=== PATIENT | female | born 1930 | race Caucasian/White ===

== ENCOUNTER 2017-11-07 02:24 | Inpatient (IN) | payer OTHER, MEDICARE ==
[~2017-11-07] VITALS: Ht 154.9 cm; Wt 63.5 kg
[~2017-11-07 02:24] MED LIST: CENTRUM SILVER1 EAC3 PO; ULTRAM50 M1 PO
--- NOTE | 2017-11-07 02:28 | ED NECK/BACK PAIN COMPLAINT ---
See Addendum History of Present Illness General Chief Complaint: Low Back Pain/Injury Stated Complaint: BACK PAIN RADIATING DOWN RT SIDE. Source: patient, old records, EMS Exam Limitations: no limitations Vital Signs & Intake/Output Vital Signs & Intake/Output Vital Signs Date Time Temp Pulse Resp B/P B/P Pulse O2 O2 Flow FiO2 Mean Ox Delivery Rate 11/07 0623 97.6 56 16 147/68 95 Room Air 11/07 0426 97.6 56 18 153/63 96 Room Air 11/07 0228 98.4 60 18 175/76 6 Room Air Allergies Coded Allergies: Sulfa (Sulfonamide Antibiotics) (NAUSEA 01/14/17) Triage Nurses Notes Reviewed? yes HPI: Patient presents with sciatica going down her right leg. Patient states that she suffers from sciatica but it is usually well-controlled. Patient was recently on vacation and did a lot of walking. The pain has been increased since then. Tonight she got up to go to the bathroom and was unable to walk secondary to the pain. Patient denies any weakness or numbness. There is no incontinence of bowel or bladder. The pain is aching in nature. The pain is 8 out of 10. (Nelly CARTAGENA,Brent Brasher) Reconcile Medications Alendronate Sodium 70 MG TABLET 1 TAB PO Mo BONE (Reported) in the morning, at least 30 minutes before the first food, beverage, or medication of the day Multivitamin (Daily Value) 1 EACH TABLET 1 TAB PO DAILY VITAMIN SUPPORT ( Reported) (Heri Valles DO) Past History Travel History Traveled to [place] past 21 day No Medical History Any Pertinent Medical History? see below for history Neurological: NONE EENT: NONE Cardiovascular: NONE Respiratory: NONE Gastrointestinal: NONE Hepatic: NONE Renal: NONE Musculoskeletal: sciatica Psychiatric: NONE Endocrine: NONE Blood Disorders: NONE Cancer(s): NONE RESIDENTIAL ASSISTANT/Reproductive: NONE Other Medical Hx: lyme disease Surgical History Surgical History: non-contributory Psychosocial History What is your primary language Maltese Tobacco Use: Never used ETOH Use: denies use Illicit Drug Use: denies illicit drug use Family History Hx Contributory? No (Nelly CARTAGENA,Brent Brasher) Review of Systems Review of Systems Constitutional: Reports: no symptoms. Ears, Nose, Throat, Mouth: Reports: no symptoms. Respiratory: Reports: no symptoms. Cardiovascular: Reports: no symptoms. Gastrointestinal/Abdominal: Reports: no symptoms. Musculoskeletal: Reports: see HPI, back pain. Neurological/Psychological: Reports: no symptoms. (Nelly CARTAGENA,Brent Brasher) Physical Exam Physical Exam General Appearance: well developed/nourished, alert, awake, moderate distress Head: atraumatic, normal appearance Eyes: Bilateral: PERRL, EOMI. Ears, Nose, Throat, Mouth: hearing grossly normal, moist mucous membrane Neck: normal inspection, supple, full range of motion Respiratory: normal breath sounds, chest non-tender, no respiratory distress, lungs clear Cardiovascular: regular rate/rhythm, normal peripheral pulses Gastrointestinal: normal bowel sounds, soft, non-tender, no organomegaly Back: muscle spasm, no vertebral tenderness Extremities: non-tender, normal range of motion Straight Leg Raising: Right: Negative. Left: Negative. Sensory: Medial Le: L4R, L4L. Motor: Deficit L4 Right: No Deficit L4 Left: No Deficit L5 Right: No Deficit L5 Left: No Deficit S1 Right: No Deficit S1 Right: No DTR: Deficit L4 Left: No Deficit L4 Right: No Deficit S1 Left: No Deficit S1 Right: No Patellar: 3: L4 Right, L4 Left. Achilles: 3: S1 Right, S1 Left. Neurologic/Psych: no motor/sensory deficits, awake, alert, oriented x 3, normal mood/affect Core Measures CVA/TIA Diagnosis: No (Nelly CARTAGENA,Brent Brasher) Progress Differential Diagnosis: herniated disc, myofascial strain, sciatica Plan of Care: Orders Procedure Date/time Status Regular Diet 11/[address] LUMB SPINE WO IV CONTRAST 11/07 904 Active PT Evaluate & Treat 11/08 431 Active CASE MANAGEMENT CONSULT 11/08 431 Active Theraputic Activities 15 Min 11/07 UNK Complete PT EVAL LOW COMPLEX 20 MIN 11/07 UNK Complete Hand-Off Endorsed To: Heri Valles DO Endorsed Time: 699 Pending: consult Comments: Patient is beginning to feel better. Patient unable to get out of bed secondary to pain. Patient states that she was feeling better and was able to fall from side to side or when she sat up with an attempt to stand the pain intensified again. At this point we'll give steroids, Tylenol with Codeine and obtain a physical therapy consultation. (Nelly CARTAGENA,Brent Brasher) Departure Departure Disposition: STILL A PATIENT Condition: Stable Clinical Impression Primary Impression: Sciatica of right side Referrals: Mellissa Sanchez MD (PCP/Family) Departure Forms: Customer Survey General Discharge Information (Nelly CARTAGENA,Brent Brasher) Departure Comments 11/07/17 9:38 AM She is unable to walk. PT consultation has been obtained. Case management consultation is pending. (Heri Valles DO)
[2017-11-07] MEDS ORDERED: ALENDRONATE SOD70 M2 PO (09:29)
[2017-11-07] MEDS ORDERED: DAILY VALUE1 EACH PO (09:30)
--- NOTE | 2017-11-07 10:30 | CT SCAN REPORT ---
EXAMINATION: CT LUMBAR SPINE WITHOUT CONTRAST CLINICAL INFORMATION: Back pain. COMPARISON: None TECHNIQUE: Lumbar spine CT was performed without contrast. Multiplanar reformats were rendered and reviewed. DLP: 536 mGy-cm FINDINGS: There is mild grade 1 anterolisthesis of L4 on L5 and L5 on S1. There is mild dextroscoliotic curvature at L1-L2 with asymmetric left-sided disc height loss at L1-L2. There is multilevel intervertebral disc height loss with vacuum discs at every level excepting L2-L3. Multiple endplate Schmorl's nodes are also noted most prominently at T12 and L3. There is advanced multilevel facet arthropathy. No fracture is seen. There is atelectasis at the left lung base. Colonic diverticulosis is noted. SPINAL LEVELS: L1-L2: Posterior disc osteophyte complex without significant spinal canal stenosis. Bilateral facet arthropathy and ligamentum flavum infolding. Mild bilateral neural foraminal stenosis. L2-L3: Disc bulging, facet arthropathy, and ligamentum flavum infolding. No spinal canal stenosis. No neural foraminal stenosis. L3-L4: Posterior disc osteophyte complex in combination with ligamentum flavum infolding and facet arthropathy results in mild spinal canal stenosis with flattening of the ventral thecal sac. Moderate left and [id number] right neural foraminal stenosis with mass effect on the left more than right L3 nerve roots. L4-L5: Disc bulging in combination with ligamentum flavum infolding and facet arthropathy results in moderate spinal canal stenosis and subarticular zone stenosis. There is grade 1 anterolisthesis with posterior unroofing of the disc which contributes to severe right and moderate left neural foraminal stenosis with mass effect on the exiting right L4 nerve root. L5-S1: Disc bulging and bilateral facet arthropathy without spinal canal stenosis. Moderate right neural foraminal stenosis with mass effect on the exiting right L5 nerve root. IMPRESSION: - No lumbar spine fracture. Mild grade 1 anterolisthesis of L4 on L5 and L5 on S1. - Multilevel degenerative spondylotic changes as detailed above resulting in varying degrees of spinal canal, subarticular, and neural foraminal stenosis.
--- NOTE | 2017-11-07 12:07 | History & Physical ---
Nancy Wiley 11/07/17 1206: General Information and HPI MD Statement: I have seen and personally examined LE SOLITARIO and documented this H&P. The patient is a 87 year old F who presented with a patient stated chief complaint of back pain. Source of Information: patient History of Present Illness: Ms Solitario is an 87 year old woman w/ a PMHx of sciatica, osteoporosis (on alendronate) with no other significant past history came to the hospital with a chief concern of pain in her back that is radiating to bilateral lower extremities. Severity 01/10, radiating to the back of her lower extremities 2 days. As per the patient, she was on a vacation and walked more than usual her daily walking. Also, has been exercising more than her regular routine. No loss of bladder or bowel function. No neurological weakness or numbness. She has urinary incontinence at baseline, and has not chaged lately. Non smoker, non alcoholic. No recent injuries, trauma or falls. She was planned to be discharged today this am, but since she couldnt get out of the bed; thought prudent to bring her into general medcine for optimal pain control. No chest pain, palpitations, no dysuria. Allergies/Medications Allergies: Coded Allergies: Sulfa (Sulfonamide Antibiotics) (NAUSEA 01/14/17) Home Med list Alendronate Sodium 70 MG TABLET 1 TAB PO Mo BONE (Reported) in the morning, at least 30 minutes before the first food, beverage, or medication of the day Multivitamin (Daily Value) 1 EACH TABLET 1 TAB PO DAILY VITAMIN SUPPORT ( Reported) Past History Travel History Traveled to [place] past 21 day No Medical History Neurological: NONE EENT: NONE Cardiovascular: NONE Respiratory: NONE Gastrointestinal: NONE Hepatic: NONE Renal: NONE Musculoskeletal: sciatica Psychiatric: NONE Endocrine: NONE Blood Disorders: NONE Cancer(s): NONE MANAGER FLOOR/Reproductive: NONE Other Medical Hx: lyme disease Isolation History: Standard Surgical History Surgical History: non-contributory Past Family/Social History Family History Relations & Conditions if any Relation not specified for: *No pertinent family history Psychosocial History Who Do You Live With? spouse Services at Home: None Primary Language: Azeri Smoking Status: Never Smoked ETOH Use: denies use Illicit Drug Use: denies illicit drug use Living Will? yes Functional Ability ADLs Independent: dressing, eating, toileting, bathing. Ambulation: independent IADLs Independent: shopping, housework, finances, food prep, telephone, transportation , medication admin. Employment History Employment Retired Review of Systems Review of Systems Constitutional: Reports: see HPI. Denies: chills, fever. EENTM: Denies: blurred vision, visual changes. Cardiovascular: Denies: chest pain, orthopena, palpitations, peripheral edema, syncope. Respiratory: Denies: cough, short of breath. GI: Denies: abdominal pain, diarrhea. Genitourinary: Denies: frequency. Musculoskeletal: Denies: back pain. Skin: Denies: change in skin color. Neurological/Psychological: Denies: anxiety, numbness, paresthesia, pre-existing deficit, petit mal seizures , tingling. Hematologic/Endocrine: Denies: bruising. Exam & Diagnostic Data Last 24 Hrs of Vital Signs/I&O Vital Signs Date Time Temp Pulse Resp B/P B/P Pulse O2 O2 Flow FiO2 Mean Ox Delivery Rate 11/07 1251 98.5 11/07 1229 60 18 148/68 98 Room Air Room Air 11/07 1207 95 Room Air 11/07 1131 56 18 164/72 95 Room Air / 0623 97.6 56 16 147/68 95 Room Air / 0426 97.6 56 18 153/63 96 Room Air 11/07 0228 98.4 60 18 175/76 6 Room Air Intake & Output 11/07 1600 07 0800 08 0000 Intake Total 0 Output Total Balance 0 Intake, Oral 0 Patient 140 lb 140 lb Weight Weight Bed scale Reported by Patient Measurement Method Physical Exam General Appearance Alert, Oriented X3, Cooperative, No Acute Distress Skin No Rashes, No Breakdown, No Significant Lesion Skin Temp/Moisture Exam: Warm/Dry Sepsis Skin Exam (color): Normal for Ethnicity HEENT Atraumatic, PERRLA, EOMI, Mucous Membr. moist/pink Neck Supple, No JVD, No thryomegaly, +2 Carotid Pulse wo Bruit Lymphatic Axillary nl, Cervical nl Cardiovascular Regular Rate, Normal S1, Normal S2, No Murmurs, Gallops, Rubs Lungs Normal Air Movement Abdomen Normal Bowel Sounds, Soft, No Tenderness, No Hepatospenomegaly, No Masses Neurological Normal Speech, Strength at 5/5 X4 Ext, Normal Tone, Sensation Intact, Cranial Nerves 3-12 NL, Reflexes 2+, Rectal tone present SLR negative No tenderness in the back Extremities No Clubbing, No Cyanosis, No Edema, Normal Pulses, No Tenderness/ Swelling Vascular Normal Pulses, Pulses Symmetrical Sepsis Peripheral Pulse Location: Dorsalis Pedis Sepsis Peripheral Pulse Exam: Normal Body Front and Back (Adult) 1) pain Last 24 Hrs of Labs/Jonatan: Laboratory Tests 11/07/17 1405: Sodium Pending, Potassium Pending, Chloride Pending, Carbon Dioxide Pending, Anion Gap Pending, BUN Pending, Creatinine Pending, BUN/Creatinine Ratio Pending 11/07/17 1405: Calcium Pending, Total Bilirubin Pending, Direct Bilirubin Pending, AST Pending, ALT Pending, Alkaline Phosphatase Pending, Total Protein Pending, Albumin Pending, 25-OH Vitamin D Total Pending, CBC w Diff Pending, WBC Pending, RBC Pending, Hgb Pending, Hct Pending, MCV Pending, MCH Pending, MCHC Pending, RDW Pending, Plt Count Pending, MPV Pending Assessment/Plan Assessment: Ms Solitario is an 87 year old woman w/ a PMHx of sciatica, osteoporosis (on alendronate) with no other significant past history came to the hospital with a chief concern of worsening pain in her back radiating to bilateral lower extremities x 2 days likely secondary to radioculopathy. At the time of admission-temperature 98.4, pulse rate 60, respiration 18, blood pressure 175/76, pulse ox 96% on room air. Labs: WBC 5.3, Hb 14.4, platelets 337 Na 139, K 4.0, BUN 17, Cr 0.7 She was given prednisone, Tylenol 3, ketorolac 30 mg IM, cyclobenzaprine. Lumbar CT revealed mild grade 1 anterolisthesis of L4 on L5 and L5 on S1. There is mild dextroscoliotic curvature at L1-L2 with asymmetric left-sided disc heightloss at L1-L2. There is multilevel intervertebral disc height loss withvacuum discs at every level excepting L2-L3. Multiple endplate Schmorl' snodes are also noted most prominently at T12 and L3. There is advanced multilevel facet arthropathy. No fracture is seen. There is atelectasis at the left lung base. Colonic diverticulosis is noted. SPINAL LEVELS: L1-L2: Posterior disc osteophyte complex without significant spinal canalstenosis. Bilateral facet arthropathy and ligamentum flavum infolding. Mildbilateral neural foraminal stenosis. L2-L3: Disc bulging, facet arthropathy, and ligamentum flavum infolding. Nospinal canal stenosis. No neural foraminal stenosis.L3-L4: Posterior disc osteophyte complex in combination with ligamentumflavum infolding and facet arthropathy results in mild spinal canal stenosiswith flattening of the ventral thecal sac. Moderate left and [id number] neural foraminal stenosis with mass effect on the left more than rightL3 nerve roots. L4-L5: Disc bulging in combination with ligamentum flavum infolding and facetarthropathy results in moderate spinal canal stenosis and subarticular zonestenosis. There is grade 1 anterolisthesis with posterior unroofing of thedisc which contributes to severe right and moderate left neural foraminal stenosis with mass effect on the exiting right L4 nerve root. L5-S1: Disc bulging and bilateral facet arthropathy without spinal canalstenosis. Moderate right neural foraminal stenosis with mass effect on theexiting right L5 nerve root. Problem list: #1 lumbar radical radiculopathy #2 h/o chronic back pain #3 h/o osteoporosis Plan: #1 pain management with tylenlol 500mg q8h scheduled, Flexeril 5mg tid, lidocaine patch, oxycodone 5mg q8h prn. Would also add gabapentin 200mg qpm. #2 Physical therapy evaluation #3 DVT PPx w/ subcutaneous heparin sc #4 Fall precautions. #5 If she develops any worsening symptoms, or has any s/s of cord compression would get an MRI lumbar spine. At this time, she doesnt seem to have any symptoms. #6 Check 25OH vit D. As Ranked By This Provider Problem List: 1. Sciatica of right side Core Measures/Misc (12/18) Acute Coronary Syndrome ACS Diagnosis: No Congestive Heart Failure Congestive Heart Failure Diagnosis No Cerebrovascular Accident CVA/TIA Diagnosis: No VTE (View Protocol) VTE Risk Factors Acute Medical Illness No Mechanical VTE Prophylaxis d/t N/A MechProphylax Ordered No VTE Pharm Prophylaxis d/t NA PharmProphylax ordered Sepsis (View protocol) Sepsis Present: No If YES complete Sepsis Event Note If YES complete Sepsis Event Note Dwain CARTAGENA,[place] 11/07/17 1338: Core Measures/Misc (12/18) Sepsis (View protocol) If YES complete Sepsis Event Note If YES complete Sepsis Event Note Attending MD Review Statement Attending Statement Attending MD Statement: examined this patient, discuss w/resident/PA/GLASS LATHE OPERATOR, agreed w/resident/PA/GLASS LATHE OPERATOR, reviewed EMR data (avail), discussed with nursing, discussed with case mgmt, reviewed images Attending Assessment/Plan: 87-year-old female past medical history of osteoporosis, here with severe intractable back pain. Had a recent trip to [facility] where she walked a lot and this morning could barely get out of bed. No neurological deficit, no bowel or bladder incontinence and no saddle anesthesia. CT scan shows multilevel canal stenosis with mass-effect and on exiting nerve roots. Will bring her into [facility], treat her pain aggressively with Neurontin, lidocaine patch, Flexeril. PT and out of bed and will follow closely.
[2017-11-07 12:29] VITALS: BP 148/68
--- NOTE | 2017-11-07 13:38 | Admission Certification ---
Admission Certification Certification Statement - As attending physician, I certify that at the time of - admission, based on clinical presentation, severity of - symptoms, need for further diagnostic testing and - therapeutic interventions, and risk of adverse outcomes - without in-hospital treatment, in my clinical assessment, - this patient requires an acute hospital stay for a minimum - of two nights or longer. I have also considered psychsocial - factors such as support system, advanced age, financial - issues, cognitive issues, and failed out-patient treatments, - past re-admission history, safety of patient, and lack of - compliance as applicable. Specific rationale supporting this admission is: Severe intractable pain with spinal canal stenosis and mass-effect on nerve roots.
[2017-11-07 14:30] LABS: ABSOLUTE BASOPHIL COUNT 0 /CUMM (0.0-0.2); ABSOLUTE EOSINOPHIL COUNT 0 /CUMM (0.0-0.7); ABSOLUTE GRANULOCYTE CT 4.7 /CUMM (1.4-6.5); ABSOLUTE LYMPH COUNT 0.6 /CUMM (1.2-3.4); ABSOLUTE MONOCYTE COUNT 0 /CUMM (0.10-0.60); BASOPHIL % 0 % (0.0-2.0); EOSINOPHIL % 0 % (0-5); HEMATOCRIT 42.3 % (37-47); MEAN CORPUSCULAR VOLUME 88.2 FL (81.0-99.0); MEAN PLATELET VOLUME 7.8 FL (7.4-10.4); RBC DISTRIBUTION WIDTH 13.4 % (11.5-14.5); RED BLOOD CELL CT 4.79 /CUMM (4.20-5.40); WHITE BLOOD CELL COUNT 5.3 /CUMM (4.8-10.8)
[2017-11-07 14:52] LABS: GRANULOCYTE % 88.4 % (42.2-75.2)
[2017-11-07 14:53] LABS: PLATELET COUNT 337 /CUMM (130-400)
[2017-11-07 15:10] VITALS: BP 146/72
[2017-11-07 21:39] VITALS: BP 120/62
--- NOTE | 2017-11-08 06:31 | PN- Housestaff ---
Shimon Martin 11/08/17 0631: Subjective Follow-up For: Low back pain Lumbar radiculopathy Subjective: He visited her this morning, she was lying back in bed alert and oriented 3. She was in no acute distress. She has stated that her back pain is much better than yesterday. She had no problems with bowel movement or urination. She denies any lightheadedness, dizziness, chest pain, shortness of breath, vertigo, chills, fever, dysuria, constipation, diarrhea, or abdominal pain. Review of Systems Constitutional: Reports: see HPI. Objective Last 24 Hrs of Vital Signs/I&O Vital Signs Date Time Temp Pulse Resp B/P B/P Pulse O2 O2 Flow FiO2 Mean Ox Delivery Rate 11/08 0648 98.9 58 18 110/52 96 Room Air 11/07 2139 98.3 70 16 120/62 95 Room Air 11/07 1510 98.5 60 18 146/72 98 Room Air Room Air 11/07 1251 98.5 11/07 1229 60 18 148/68 98 Room Air Room Air 11/07 1207 95 Room Air 11/07 1131 56 18 164/72 95 Room Air Intake & Output 11/08 1600 11/08 0800 11/08 0000 Intake Total 480 850 Output Total Balance 480 850 Intake, IV 0 10 Intake, Oral 480 840 Number 1 0 1 Bowel Movements Physical Exam General Appearance: Alert, Oriented X3, Cooperative, No Acute Distress Skin: No Rashes Skin Temp/Moisture Exam: Warm/Dry HEENT: Atraumatic Assessment/Plan Assessment: Ms Solitario is an 87 year old woman w/ a PMHx of sciatica, osteoporosis (on alendronate) with no other significant past history came to the hospital with a chief concern of worsening pain in her back radiating to bilateral lower extremities for two days likely secondary to radioculopathy. She will try to ambulate and walk on the floor if she can tolerate it she might be able to be discharged tomorrow. Lumbar radical radiculopathy: The pain is in control now. Plan: We will obtain MRI, pain management was done with gabapentin 200 mg every afternoon, acetaminophen 500 mg p.o. every 8 hours, cyclobenzaprine 5 mg 3 times daily, oxycodone 5 mg q. 8, lidocaine patch In ER she received prednisone 60 mg p.o., ketorolac 30 mg injection. Osteoporosis: Plan: She has been taking alendronate. Low Vitamin D: Plan: Cholecalciferol 2000 IU daily Problem List: 1. Lumbar back pain with radiculopathy affecting lower extremity 2. Low back pain Pain Ratin Pain Location: Low back Pain Goal: Pain 4 or less Pain Plan: Lidocaine patch Oxycodone Acetaminophen Tomorrow's Labs & Rationales: JESSICA Prakash MD,[place] 11/08/17 0955: Attending MD Review Statement Attending Statement Attending MD Statement: examined this patient, discuss w/resident/PA/RIB KNITTER, agreed w/resident/PA/RIB KNITTER, reviewed EMR data (avail), discussed with nursing, discussed with case mgmt, reviewed images Attending Assessment/Plan: Overall patient is doing better. She was able to take a few stairs today with less pain. 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 We started on low-dose Neurontin at bedtime. The plan is STR when stable.
[2017-11-08 06:48] VITALS: BP 110/52
--- NOTE | 2017-11-08 11:23 | Discharge Summary ---
Visit Information Visit Dates Admission Date: 11/07/17 Hospital Course Course Attending Physician: Dwain CARTAGENA,Odette Escudero Primary Care Physician: Laura CARTAGENA,[place] Hospital Course: Assessment: Ms Solitario is an 87 year old pleasant lady with past medical history of sciatica, osteoporosis (on alendronate) with no other significant medical problems who came to the ER with a chief concern of worsening pain in her back radiating to bilateral lower extremities for two days likely secondary to radioculopathy. On the second day of admission she was able to take a few stairs with less pain. Imaging has shown severe spinal canal stenosis with mass-effect on exiting nerve roots. In the afternoon her pain had worsened. She believes she needs to go to short-term rehab. Lumbar radical radiculopathy: The pain is in control now. Plan: We will obtain MRI, pain management was done with gabapentin 200 mg ( increased to 300) every afternoon, acetaminophen 500 mg p.o. every 8 hours, cyclobenzaprine 5 mg 3 times daily, oxycodone 5 mg q. 8, lidocaine patch In ER she received prednisone 60 mg p.o., ketorolac 30 mg injection. Osteoporosis: Plan: She has been taking alendronate. Allergies: Coded Allergies: Sulfa (Sulfonamide Antibiotics) (NAUSEA 01/14/17) Significant Procedures: Lumbar CT: FINDINGS: There is mild grade 1 anterolisthesis of L4 on L5 and L5 on S1. There is mild dextroscoliotic curvature at L1-L2 with asymmetric left-sided disc height loss at L1-L2. There is multilevel intervertebral disc height loss with vacuum discs at every level excepting L2-L3. Multiple endplate Schmorl's nodes are also noted most prominently at T12 and L3. There is advanced multilevel facet arthropathy. No fracture is seen. There is atelectasis at the left lung base. Colonic diverticulosis is noted. SPINAL LEVELS: L1-L2: Posterior disc osteophyte complex without significant spinal canal stenosis. Bilateral facet arthropathy and ligamentum flavum infolding. Mild bilateral neural foraminal stenosis. L2-L3: Disc bulging, facet arthropathy, and ligamentum flavum infolding. No spinal canal stenosis. No neural foraminal stenosis. L3-L4: Posterior disc osteophyte complex in combination with ligamentum flavum infolding and facet arthropathy results in mild spinal canal stenosis with flattening of the ventral thecal sac. Moderate left and [id number] right neural foraminal stenosis with mass effect on the left more than right L3 nerve roots. L4-L5: Disc bulging in combination with ligamentum flavum infolding and facet arthropathy results in moderate spinal canal stenosis and subarticular zone stenosis. There is grade 1 anterolisthesis with posterior unroofing of the disc which contributes to severe right and moderate left neural foraminal stenosis with mass effect on the exiting right L4 nerve root. L5-S1: Disc bulging and bilateral facet arthropathy without spinal canal stenosis. Moderate right neural foraminal stenosis with mass effect on the exiting right L5 nerve root. IMPRESSION: - No lumbar spine fracture. Mild grade 1 anterolisthesis of L4 on L5 and L5 on S1. - Multilevel degenerative spondylotic changes as detailed above resulting in varying degrees of spinal canal, subarticular, and neural foraminal stenosis. Disposition Summary Disposition Principal Diagnosis: Lumbar radical radiculopathy Additional Diagnosis: Osteporosis Low Vitamin D level Discharge Instructions General Discharge Information Code Status: Full Code Medications at Discharge Discharge Medications: Continue taking these medications: Alendronate Sodium (Alendronate Sodium) 70 MG TABLET 1 Tablet ORAL Mo Qty = 12 Instructions: in the morning, at least 30 minutes before the first food, beverage, or medication of the day Comments: NOT GIVEN IN HOSPITAL Multivitamin (Daily Value) 1 EACH TABLET 1 Tablet ORAL DAILY Comments: NOT GIVEN IN HOSPITAL Start taking the following new medications: Oxycodone HCl (Oxycodone HCl) 5 MG TABLET 5 Milligram ORAL EVERY SIX HOURS NEEDED as needed for BACK PAIN Qty = 10 No Refills Comments: Last Taken: 11/10/17 Time: 11:00 AM Lidocaine (Lidoderm) 5 % ADH..PATCH 1 Patch ON SKIN Q24H Qty = 10 No Refills Instructions: Please keep on for 12 hours and off for 12 hours Comments: Last Taken: 11/09/17 Time: 1:00 PM Cyclobenzaprine HCl (Cyclobenzaprine HCl) 5 MG TABLET 5 Milligram ORAL THREE TIMES DAILY Qty = 30 No Refills Comments: Last Taken: 11/10/17 Time: 8:00 AM Gabapentin (Gabapentin) 300 MG CAPSULE 300 Milligram ORAL Every night Qty = 10 No Refills Comments: Last Taken: 11/09/17 Time: 8:00 PM Polyethylene Glycol 3350 (Miralax) 17 GRAM/DOSE POWDER 17 Gram ORAL DAILY Qty = 10 No Refills Comments: Last Taken: 11/10/17 Time: 8:00 AM Cholecalciferol (Vitamin D3) 1,000 UNIT TABLET 2,000 International Unit ORAL DAILY Qty = 30 No Refills Comments: Last Taken: 11/10/17 Time: 8:00 AM Sennosides/Docusate Sodium (Senna Plus Tablet) 8.6 MG-50 MG TABLET 1 Tablet ORAL AT BEDTIME Qty = 10 No Refills Comments: Last Taken: 11/09/17 Time: 8:00 PM
[2017-11-08] MEDS ORDERED: LIDODERM1 EACH EXT (14:02)
[2017-11-08 14:08] VITALS: BP 100/60
--- NOTE | 2017-11-08 14:12 | Patient Discharge Instructions ---
Discharge Instructions General Discharge Information You were seen/treated for: Lumbar radiculopathy with radiation to both lower extremities Watch for these problems: Worsening of back pain weakness, numbness, or tingling in your legs Special Instructions: Please visit your PCP one week after your discharge. Please call your PCP if you notice worsening of your low back pain, or if you notice weakness, tingling, or numbness in your legs or feet Diet Continue normal diet: Yes Recommended Diet: Regular Activity Full Activity/No Limits: No Activity Self Limited: Yes Acute Coronary Syndrome Inclusion Criteria At DC or during hospital stay patient has or had the following: ACS DIAGNOSIS No Discharge Core Measures Meds if any: Prescribed or Continued at Discharge Meds if any: NOT Prescribed or Continued at Discharge Congestive Heart Failure Inclusion Criteria At DC or during hospital stay patient has or had the following: CHF DIAGNOSIS No Discharge Core Measures Meds if any: Prescribed or Continued at Discharge Meds if any: NOT Prescribed or Continued at Discharge Cerebrovascular accident Inclusion Criteria At DC or during hospital stay patient has or had the following: CVA/TIA Diagnosis No Discharge Core Measures Meds if any: Prescribed or Continued at Discharge Meds if any: NOT Prescribed or Continued at Discharge Venous thromboembolism Inclusion Criteria VTE Diagnosis No VTE Type NONE VTE Confirmed by (Test) NONE Discharge Core Measures - Per Current guidelines, there needs to be overlap - treatment for the first 5 days of Warfarin therapy. - If discharged on Warfarin prior to 5 days of - overlap therapy, the patient will need to be - assessed for post discharge needs including - *Post discharge parental anticoagulation - *Warfarin and/or parental anticoagulation education - *Follow up date to check INR post discharge At least 5 days overlap therapy as Inpatient No Meds if any: Prescribed or Continued at Discharge Note: Overlap Therapy is Warfarin and Anticoagulant Meds if any: NOT Prescribed or Continued at Discharge
[2017-11-08 21:56] VITALS: BP 110/70
[2017-11-09 06:30] VITALS: BP 122/62
--- NOTE | 2017-11-09 06:38 | PN- Housestaff ---
Shimon Martin 11/09/17 0638: Subjective Follow-up For: Low back pain Lumbar radiculopathy Subjective: I visited the patient this morning. She was lying back in her bed. Alert and orinted x 3, in no acute distress. She had some difficulty with her back pain yesterday afternoon and she was not available to ambulate. Now her pain has improved, she likes to be sent to rehab till she can regain her stenght and them home. She denies any lightheadedness, dizziness, chest pain, shortness of breath, vertigo, chills, fever, dysuria, constipation, diarrhea, or abdominal pain. Review of Systems Constitutional: Reports: see HPI. Objective Last 24 Hrs of Vital Signs/I&O Vital Signs Date Time Temp Pulse Resp B/P B/P Pulse O2 O2 Flow FiO2 Mean Ox Delivery Rate 11/09 1400 97.8 77 18 112/52 95 Room Air 11/09 1257 Room Air Room Air 11/09 1233 Room Air Room Air 11/09 0630 98.3 61 18 122/62 96 11/08 2156 98.1 68 18 110/70 93 Room Air Intake & Output 11/09 1600 11/09 0800 11/09 0000 Intake Total 600 250 480 Output Total 500 600 Balance 100 250 -120 Intake, IV 10 Intake, Oral 600 240 480 Number 2 0 Bowel Movements Output, Urine 500 600 Physical Exam General Appearance: Alert, Oriented X3, Cooperative, No Acute Distress Skin: No Rashes Skin Temp/Moisture Exam: Warm/Dry Sepsis Skin Exam (color): Normal for Ethnicity HEENT: Atraumatic Neck: Supple, No JVD Cardiovascular: Regular Rate, Normal S1, Normal S2 Lungs: Clear to Auscultation, Normal Air Movement Abdomen: Normal Bowel Sounds, Soft, No Tenderness Neurological: Normal Speech Extremities: No Clubbing, No Cyanosis, No Edema, Normal Pulses, No Tenderness/ Swelling Vascular: Normal Pulses, Pulses Symmetrical Assessment/Plan Assessment: Ms Solitario is an 87 year old woman w/ a PMHx of sciatica, osteoporosis (on alendronate) with no other significant past history came to the hospital with a chief concern of worsening pain in her back radiating to bilateral lower extremities for two days likely secondary to radioculopathy. She is anticipated to be discharged to STR tomorrow. Lumbar radical radiculopathy: The pain is in control now. Plan: We will obtain MRI, pain management was done with gabapentin 300 mg every afternoon, acetaminophen 500 mg p.o. every 8 hours, cyclobenzaprine 5 mg 3 times daily, oxycodone 5 mg q. 8, lidocaine patch In ER she received prednisone 60 mg p.o., ketorolac 30 mg injection. Osteoporosis: Plan: She has been taking alendronate. Low Vitamin D: Plan: Cholecalciferol 2000 IU daily Problem List: 1. Lumbar back pain with radiculopathy affecting lower extremity 2. Low back pain Pain Ratin Pain Location: Low back Pain Goal: Pain 4 or less Pain Plan: Lidocaine patch Oxycodone Acetaminophen Tomorrow's Labs & Rationales: Odette Marc MD 11/09/17 1040: Attending MD Review Statement Attending Statement Attending MD Statement: examined this patient, discuss w/resident/PA/MEDICAL LAB TECHNOLOGIST, agreed w/resident/PA/MEDICAL LAB TECHNOLOGIST, reviewed EMR data (avail), discussed with nursing, discussed with case mgmt, reviewed images Attending Assessment/Plan: Patient is extremely upset today. She said when PT saw her and worked with her in the morning yesterday she was under the influence of medication and later in the day she had a very hard time. She said she could not even move in the night and she is very worried about walking today. I reassured her that physical therapy would see her again, she has severe canal stenosis with mass-effect on exiting nerve roots and we are treating her with pain control. I anticipate that she will need STR.
[2017-11-09 14:00] VITALS: BP 112/52
[2017-11-09] MEDS ORDERED: MIRALAX119 GM PO (14:22)
[2017-11-09] MEDS ORDERED: VITAMIN D31000 UNI2 PO (14:22)
[2017-11-09] MEDS ORDERED: OXYCODONE HCL5 M1 PO (14:22)
[2017-11-09] MEDS ORDERED: GABAPENTIN300 M2 PO (14:22)
[2017-11-09] MEDS ORDERED: CYCLOBENZAPRINE5 M2 PO (14:22)
[2017-11-09] MEDS ORDERED: SENNA PLUS TAB1 EACH PO (14:23)
[2017-11-09 22:22] VITALS: BP 112/58
--- NOTE | 2017-11-10 06:36 | PN- Housestaff ---
Shimon Martin 11/10/17 0635: Subjective Follow-up For: Low back pain Lumbar radiculopathy Subjective: I visited Yeni this morning, she was lying making her bed experiencing low back pain which did not help her move. Her nurse was also present in the room. After a couple of minutes she was able to move her legs. We helpED to reposition her which helped to decrease the pain. She has not used the bathroom overnight, because she had low back pain and was not able to get out of bed. She managed to do better later during the day and she is ready to go to [facility]. She did not have any complaints of lightheadedness, dizziness, chest pain, shortness of breath, vertigo, chills, fever, dysuria, constipation, diarrhea, or abdominal pain. Review of Systems Constitutional: Reports: see HPI. Objective Last 24 Hrs of Vital Signs/I&O Vital Signs Date Time Temp Pulse Resp B/P B/P Pulse O2 O2 Flow FiO2 Mean Ox Delivery Rate 11/10 0654 98.0 58 18 138/50 94 Room Air 11/09 2222 98.1 72 17 112/58 96 Room Air 11/09 1400 97.8 77 18 112/52 95 Room Air 11/09 1257 Room Air Room Air 11/09 1233 Room Air Room Air Intake & Output 11/10 1600 11/10 0800 11/10 0000 Intake Total 240 240 Output Total 300 Balance 240 -60 Intake, Oral 240 240 Output, Urine 300 Physical Exam General Appearance: Alert, Oriented X3, Cooperative, Mild Distress, Low back pain Skin: No Rashes Skin Temp/Moisture Exam: Warm/Dry Sepsis Skin Exam (color): Normal for Ethnicity HEENT: Atraumatic Neck: Supple, No JVD, One skin tag Cardiovascular: Regular Rate, Normal S1, Normal S2 Lungs: Clear to Auscultation, Normal Air Movement Abdomen: Normal Bowel Sounds, Soft, No Tenderness Neurological: Normal Speech, Strength at 5/5 X4 Ext, Normal Tone, Sensation Intact, SLE -ve Extremities: No Clubbing, No Cyanosis, No Edema, Normal Pulses, No Tenderness/ Swelling Vascular: Normal Pulses, Pulses Symmetrical Assessment/Plan Assessment: Ms Solitario is an 87 year old woman w/ a PMHx of sciatica, osteoporosis (on alendronate) with no other significant past history came to the hospital with a chief concern of worsening pain in her back radiating to bilateral lower extremities for two days likely secondary to radioculopathy. She was in low back pain today which was preventing her from getting out of the bed to use the bathroom. She managed to do better later in the day and she is ready to go to STR. Lumbar radical radiculopathy: This morning she had severe pain 7/10 which was controlled later during the day. Plan: We will obtain MRI, pain management was done with gabapentin 300 mg every afternoon, acetaminophen 500 mg p.o. every 8 hours, cyclobenzaprine 5 mg 3 times daily, oxycodone 5 mg increased to Q6h, lidocaine patch. In ER she received prednisone 60 mg p.o., ketorolac 30 mg injection. Osteoporosis: Plan: She has been taking alendronate. Low Vitamin D: Plan: Cholecalciferol 2000 IU daily Problem List: 1. Lumbar back pain with radiculopathy affecting lower extremity 2. 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 Pain is patient is started on Neurontin, Flexeril and on oxycodone as needed and the plan is STR today with close outpatient follow-up.
[2017-11-10 06:54] VITALS: BP 138/50
[2017-11-10] MEDS ORDERED: OXYCODONE HCL5 M1 PO (10:15)
--- NOTE | 2017-11-10 10:30 | Discharge Summary ---
Visit Information Visit Dates Admission Date: 11/07/17 Discharge Date: 11/10/17 Hospital Course Course Attending Physician: Dwain CARTAGENA,Odette Escudero Primary Care Physician: Laura CARTAGENA,[facility] Course: Patient is an 87 y/o female with PMH of sciatica, osteoporosis (on alendronate) with no other significant past history presenting with chief complaint of back pain radiating to bilateral lower extremities. Patient on admission: Vitals: T: 98.4, HR 60, RR 18, BP 175/76, pulse ox 96% on room air. Labs: WBC 5.3, Hb 14.4, platelets 337, Na 139, K 4.0, BUN 17, Cr 0.7 Imaging: Lumbar CT revealed mild grade 1 anterolisthesis of L4 on L5 and L5 on S1. L2-L3: Disc bulging, facet arthropathy, and ligamentum flavum infolding. Nospinal canal stenosis. No neural foraminal stenosis. L4-L5: Disc bulging in combination with ligamentum flavum infolding and facetarthropathy results in moderate spinal canal stenosis and subarticular zonestenosis. There is grade 1 anterolisthesis with posterior unroofing of thedisc which contributes to severe right and moderate left neural foraminal stenosis with mass effect on the exiting right L4 nerve root. L5-S1: Disc bulging and bilateral facet arthropathy without spinal canalstenosis. Moderate right neural foraminal stenosis with mass effect on theexiting right L5 nerve root. In ED patient received: Prednisone, Tylenol 3, ketorolac 30 mg IM, cyclobenzaprine Patient was admitted to the general medicine floor for management of the followin. Lumbar Radical Radiculopathy Patient presented with severe back back pain with imaging revealing lumbar stenosis with disc bulging at multiple lumbar levels and degenerative spondylotic changes. Patient had no alarming symptoms concerning for cord compression. Patient was managed conservatively with pain control and physical therapy. Patient continued to require assistance while walking and with severe pain during the day was unsafe for discharge home. Patient will benefit from short term rehab. Patient will be sent on cyclobenzaprine, gabapentin, tylenol, lidocaine and oxycodone for pain control. If patient's pain at the rehab center is worse, especially at night, the dose of gabapentin and oxycodone can be increased. 2. H/O Chronic Back Pain and Osteoporosis Continue alendronate Allergies: Coded Allergies: Sulfa (Sulfonamide Antibiotics) (NAUSEA 01/14/17) Pertinent Lab Results: SERVICE DATE: 11/07/17 EXAM TYPE: CAT - CT LUMB SPINE WO IV CONTRAST EXAMINATION: CT LUMBAR SPINE WITHOUT CONTRAST CLINICAL INFORMATION: Back pain. COMPARISON: None TECHNIQUE: Lumbar spine CT was performed without contrast. Multiplanar reformats were rendered and reviewed. DLP: 536 mGy-cm FINDINGS: There is mild grade 1 anterolisthesis of L4 on L5 and L5 on S1. There is mild dextroscoliotic curvature at L1-L2 with asymmetric left-sided disc height loss at L1-L2. There is multilevel intervertebral disc height loss with vacuum discs at every level excepting L2-L3. Multiple endplate Schmorl's nodes are also noted most prominently at T12 and L3. There is advanced multilevel facet arthropathy. No fracture is seen. There is atelectasis at the left lung base. Colonic diverticulosis is noted. SPINAL LEVELS: L1-L2: Posterior disc osteophyte complex without significant spinal canal stenosis. Bilateral facet arthropathy and ligamentum flavum infolding. Mild bilateral neural foraminal stenosis. L2-L3: Disc bulging, facet arthropathy, and ligamentum flavum infolding. No spinal canal stenosis. No neural foraminal stenosis. L3-L4: Posterior disc osteophyte complex in combination with ligamentum flavum infolding and facet arthropathy results in mild spinal canal stenosis with flattening of the ventral thecal sac. Moderate left and [id number] right neural foraminal stenosis with mass effect on the left more than right L3 nerve roots. L4-L5: Disc bulging in combination with ligamentum flavum infolding and facet arthropathy results in moderate spinal canal stenosis and subarticular zone stenosis. There is grade 1 anterolisthesis with posterior unroofing of the disc which contributes to severe right and moderate left neural foraminal stenosis with mass effect on the exiting right L4 nerve root. L5-S1: Disc bulging and bilateral facet arthropathy without spinal canal stenosis. Moderate right neural foraminal stenosis with mass effect on the exiting right L5 nerve root. IMPRESSION: - No lumbar spine fracture. Mild grade 1 anterolisthesis of L4 on L5 and L5 on S1. - Multilevel degenerative spondylotic changes as detailed above resulting in varying degrees of spinal canal, subarticular, and neural foraminal stenosis. Disposition Summary Disposition Principal Diagnosis: Lumbar Radiculopathy Spinal canal stenosis with mass-effect on exiting nerve root Additional Diagnosis: Chronic Back Pain, H/O Osteoporosis Discharge Disposition: SNF Discharge Instructions General Discharge Information Code Status: Full Code Patient's Diet: Regular Diet Patient's Activity: Self-Limited Follow-Up Instructions/Appts: Follow up with primary care physician Medications at Discharge Discharge Medications: Continue taking these medications: Alendronate Sodium (Alendronate Sodium) 70 MG TABLET 1 Tablet ORAL Mo Qty = 12 Instructions: in the morning, at least 30 minutes before the first food, beverage, or medication of the day Comments: NOT GIVEN IN HOSPITAL Multivitamin (Daily Value) 1 EACH TABLET 1 Tablet ORAL DAILY Comments: NOT GIVEN IN HOSPITAL Start taking the following new medications: Oxycodone HCl (Oxycodone HCl) 5 MG TABLET 5 Milligram ORAL EVERY SIX HOURS NEEDED as needed for BACK PAIN Qty = 10 No Refills Comments: Last Taken: 11/10/17 Time: 5:00 AM Lidocaine (Lidoderm) 5 % ADH..PATCH 1 Patch ON SKIN Q24H Qty = 10 No Refills Instructions: Please keep on for 12 hours and off for 12 hours Comments: Last Taken: 11/09/17 Time: 1:00 PM Cyclobenzaprine HCl (Cyclobenzaprine HCl) 5 MG TABLET 5 Milligram ORAL THREE TIMES DAILY Qty = 30 No Refills Comments: Last Taken: 11/10/17 Time: 8:00 AM Gabapentin (Gabapentin) 300 MG CAPSULE 300 Milligram ORAL Every night Qty = 10 No Refills Comments: Last Taken: 11/09/17 Time: 8:00 PM Polyethylene Glycol 3350 (Miralax) 17 GRAM/DOSE POWDER 17 Gram ORAL DAILY Qty = 10 No Refills Comments: Last Taken: 11/10/17 Time: 8:00 AM Cholecalciferol (Vitamin D3) 1,000 UNIT TABLET 2,000 International Unit ORAL DAILY Qty = 30 No Refills Comments: Last Taken: 11/10/17 Time: 8:00 AM Sennosides/Docusate Sodium (Senna Plus Tablet) 8.6 MG-50 MG TABLET 1 Tablet ORAL AT BEDTIME Qty = 10 No Refills Comments: Last Taken: 11/09/17 Time: 8:00 PM Copies To: Mellissa Sanchez MD
[2017-11-10 11:19] VITALS: BP 138/50
== END 2017-11-10 12:50 | DRG 552 ==
LOC: ERH 02:24 → ERHI 10:22 → 2NB 10:22 → ENRESERV 10:52 → ENTRNSPT 11:55 → EDTRNSPT 11:56 → EDTRNSPTSTS 11:56 → 2NB 12:11 → CMPTRNSPT 12:23 → 2NB 13:42 → ENPENDDIS 11-10 10:40 → ENTRNSPT 11-10 12:16 → EDTRNSPT 11-10 12:30 → EDTRNSPTSTS 11-10 12:30 → 2NB 11-10 12:50 → CMPTRNSPT 11-10 12:58
PROVIDERS: Internal Medicine Endocrinology, Diabetes & Metabolism
DX: M54.16 Radiculopathy, lumbar region (principal); M54.31 Sciatica, right side; M81.0 Age-related osteoporosis without current pathological fracture; G89.29 Other chronic pain; M54.9 Dorsalgia, unspecified; M48.061 Spinal stenosis, lumbar region without neurogenic claudication
CPT/HCPCS: 2NBSP; 36592; 82436; 96372; 97110-GO; 97116-GO; 97161-GP; 97164-GP; 97165-GO; 97530-GO; 97530-GP; J1644; J1885